=== PATIENT | male | born 1955 | race Caucasian/White ===

== ENCOUNTER 2020-12-31 12:26 | Day surgery (SDC) | payer MEDICARE ==
[2020-12-29 13:49] VITALS: BMI 23.6
[~2020-12-31 12:26] MED LIST: Lidocaine 1% MPF 2 ML VIAL ONE
[2020-12-31] MEDS ORDERED: PROPOFOL 20 ML ONE (13:43)
== END 2020-12-31 14:49 | disposition home or self-care (01) ==
LOC: CSHSDC 12:26
PROVIDERS: ATTEND Internal Medicine Gastroenterology
DX: K22.710 Barrett's esophagus with low grade dysplasia (principal); K44.9 Diaphragmatic hernia without obstruction or gangrene; K26.9 Duodenal ulcer, unspecified as acute or chronic, without hemorrhage or perforation; K25.9 Gastric ulcer, unspecified as acute or chronic, without hemorrhage or perforation
CPT/HCPCS: 88305; J2704

== ENCOUNTER 2021-06-03 12:30 | Outpatient (CLI) | payer MEDICARE ==
[2021-06-03 13:56] LABS: Hemoglobin 14.3 g/dL (13.5-17.5); Mean Corpuscular HGB CONC 35.8 g/dL (32.0-36.0); Mean Corpuscular Hemoglobin 35.6 pg (27.0-33.0); Mean Corpuscular Volume 99.5 fl (81.2-95.1); Mean Platelet Volume 9.7 fl (7.4-10.4); Platelet Count 134 10x3/uL (150-450); RBC Distribution Width 12.3 % (11.5-14.5); Red Blood Cell (RBC) Count 4.02 10x6/uL (4.32-5.72); White Blood Cell (WBC) Count 5.1 10x3/uL (3.5-10.5)
[2021-06-03 14:05] LABS: INR-International Normal Ratio 1.1; PTT 25.9 sec (22.0-33.0); Prothrombin Time 11.9 sec (9.5-12.1)
[2021-06-03 14:06] LABS: Anion Gap 16 mmol/L (10-20); BUN (Urea Nitrogen) 8 mg/dL (8.4-25.7); Calc. Creatinine Clearance 0 mL/min (70-130); Calcium 9.8 mg/dL (7.8-10.44); Carbon Dioxide 24 mmol/L (23-31); Chloride 103 mmol/L (98-107); Glucose 115 mg/dL (80-115); Potassium 4.2 mmol/L (3.5-5.1); Sodium 139 mmol/L (136-145)
[2021-06-04 08:53] LABS: SARS-CoV-2 PCR by NAA Not Detected (NotDetected)
== END 2021-06-03 12:31 | disposition home or self-care (01) ==
LOC: CSHLAB 12:30
PROVIDERS: ATTEND Specialist
DX: Z20.822 Contact with and (suspected) exposure to COVID-19 (principal); Z01.812 Encounter for preprocedural laboratory examination; Z01.810 Encounter for preprocedural cardiovascular examination
CPT/HCPCS: 80048; 85027; 85610; 85730; 93005; 93010; U0003; U0005

== ENCOUNTER 2021-06-08 06:41 | Inpatient (IN) | payer MEDICARE ==
[2021-06-08] MEDS ORDERED: Heparin 10,000 UNITS/ 10 ML VIAL ONE ×2 (07:29→09:58)
[2021-06-08] MEDS ORDERED: Nitroglycerin 50 MG/250 ML BOT 250 ML ONE (07:29)
[2021-06-08] MEDS ORDERED: Verapamil 5 MG/2 ML VIAL ONE (07:30)
[2021-06-08] MEDS ORDERED: Fentanyl 100 MCG/2 ML VIAL ONE ×2 (07:31→09:57)
[2021-06-08] MEDS ORDERED: Adenosine 6 MG/2 ML VIAL ONE (07:31)
[2021-06-08] MEDS ORDERED: Bivalirudin 250 MG VIAL ONE (07:31)
[2021-06-08] MEDS ORDERED: Midazolam HCl 2 mg/2 ml Vial ONE ×2 (07:32→09:20)
[2021-06-08] MEDS ORDERED: Sodium Chloride 0.9% 1,000 ML ONE ×2 (07:32→15:12)
[2021-06-08] MEDS ORDERED: Lidocaine 1% (PF) 30 ML VIAL ONE (07:55)
[2021-06-08] MEDS ORDERED: Ondansetron PF 4 MG/2 ML Vial ONE (08:52)
[2021-06-08] MEDS ORDERED: Morphine 4 MG/ML VIAL ONE ×2 (09:10→10:07)
[2021-06-08] MEDS ORDERED: Metoprolol Tartrate 5 MG/5 ML VIAL ONE ×2 (09:40→10:48)
[2021-06-08] MEDS ORDERED: Senokot S 8.6-50 MG TAB PO PRN (10:31)
[2021-06-08] MEDS ORDERED: Bisacodyl 5 MG TAB PO PRN (10:31)
[2021-06-08] MEDS ORDERED: Acetaminophen 325 MG TAB PO PRN (10:31)
[2021-06-08] MEDS ORDERED: Ondansetron ODT 4 MG TAB PO PRN (10:31)
[2021-06-08] MEDS ORDERED: Bisacodyl 10 MG SUPP PR PRN (10:31)
[2021-06-08] MEDS ORDERED: Zolpidem Tartrate 5 MG TAB PO PRN (10:31)
[2021-06-08] MEDS ORDERED: Guaifenesin DM 100-10/5 ML UDCUP PO PRN (10:31)
[2021-06-08] MEDS ORDERED: Loperamide HCl 2 MG CAP PO PRN (10:31)
[2021-06-08] MEDS ORDERED: Nitroglycerin 0.4 MG TAB (25 Tab Bottle) SL PRN (10:47)
[2021-06-08] MEDS ORDERED: Acetaminophen/Codeine 30-300mg Tablet PO PRN ×2 (10:47)
[2021-06-08] MEDS ORDERED: Sodium Chloride 0.9% 200 ML IV PRN (10:47)
[2021-06-08] MEDS ORDERED: Acetaminophen/Codeine 30-300mg Tablet ONE (11:19)
[2021-06-08] MEDS ORDERED: Clopidogrel Bisulfate 75 MG TAB ONE (11:19)
[2021-06-08] MEDS ORDERED: hydrALAZINE 20 MG/ML VIAL ONE (11:28)
[2021-06-08] MEDS ORDERED: hydrALAZINE 20 MG/ML VIAL SLOW IVP SCH (11:30)
[2021-06-08] MEDS ORDERED: Nitroglycerin 0.4 MG TAB (25 Tab Bottle) ONE (11:43)
[2021-06-08] MEDS ORDERED: Morphine 2 MG/ML VIAL ONE (13:08)
[2021-06-08] MEDS ORDERED: Lisinopril 5 MG TAB PO SCH (14:00)
[2021-06-08] MEDS ORDERED: Morphine 2 MG/ML VIAL SLOW IVP PRN (14:04)
[2021-06-08 14:31] LABS: CKMB 2.4 ng/mL (0-6.6)
[2021-06-08] MEDS: Carvedilol 6.25 MG TAB PO SCH (17:27)
[2021-06-08] MEDS: Famotidine 20 MG TAB PO SCH (23:44)
[2021-06-08] MEDS: Sodium Chloride 0.9% 1,000 ML IV SCH ×2 (23:45)
[2021-06-08] MEDS: Nicotine 14 MG PATCH TD SCH (23:46)
[2021-06-08] MEDS: Lisinopril 5 MG TAB PO SCH (23:46)
[2021-06-09] MEDS: Sodium Chloride 0.9% 1,000 ML IV SCH (04:40)
[2021-06-09 06:50] LABS: #Eosinphils 0.1 10x3/uL (0.0-0.5); #Monocytes 0.6 10x3/uL (0.0-1.1); #Neutrophils 3.3 10x3/uL (1.5-8.4); %Basophils 0.8 % (0.0-2.0); %Eosinophils 1.3 % (0.0-6.0); %Lymphocytes 23.1 % (18.0-47.0); %Monocytes 10.6 % (0.0-10.0); Mean Corpuscular HGB CONC 35.6 g/dL (32.0-36.0); Mean Corpuscular Hemoglobin 35.7 pg (27.0-33.0); Mean Corpuscular Volume 100.3 fl (81.2-95.1); Mean Platelet Volume 9.9 fl (7.4-10.4); RBC Distribution Width 12.7 % (11.5-14.5); Red Blood Cell (RBC) Count 3.08 10x6/uL (4.32-5.72); White Blood Cell (WBC) Count 5.2 10x3/uL (3.5-10.5)
[2021-06-09 06:51] LABS: Platelet Count 87 10x3/uL (150-450)
[2021-06-09 07:09] LABS: ALT (SGPT) 49 U/L (8-55); AST (SGOT) 80 U/L (5-34); Albumin 3.3 g/dL (3.4-4.8); Alkaline Phosphatase 46 U/L (40-110); Anion Gap 12 mmol/L (10-20); BUN (Urea Nitrogen) 5 mg/dL (8.4-25.7); Bilirubin, Total 0.5 mg/dL (0.2-1.2); Calc. Creatinine Clearance 120 mL/min (70-130); Calcium 8.5 mg/dL (7.8-10.44); Carbon Dioxide 22 mmol/L (23-31); Chloride 109 mmol/L (98-107); Globulin 2.7 g/dL (2.4-3.5); Glucose 125 mg/dL (80-115); Potassium 3.7 mmol/L (3.5-5.1); Sodium 139 mmol/L (136-145)
[2021-06-09 08:19] VITALS: TEMP 98.4
[2021-06-09] MEDS ORDERED: Escitalopram Oxalate 10 mg Tablet PO SCH (09:00)
[2021-06-09] MEDS ORDERED: Aspirin 81 mg Enteric Coated Tablet PO SCH (09:00)
[2021-06-09] MEDS ORDERED: Fish Oil 1,000 MG CAP PO SCH (09:00)
[2021-06-09] MEDS ORDERED: Clopidogrel Bisulfate 75 MG TAB PO SCH (09:00)
[2021-06-09] MEDS ORDERED: Multivit, Therapeutic 1 TAB PO SCH (09:00)
[2021-06-09] MEDS ORDERED: Enoxaparin Sodium 40 MG/0.4 ML SYRINGE SC SCH (09:00)
[2021-06-09] MEDS ORDERED: Rosuvastatin 10 MG TAB PO SCH (09:00)
[2021-06-09] MEDS: Carvedilol 6.25 MG TAB PO SCH (10:09)
[2021-06-09] MEDS: Famotidine 20 MG TAB PO SCH (10:10)
[2021-06-09] MEDS: Lisinopril 5 MG TAB PO SCH (10:11)
[2021-06-09] MEDS: Nicotine 14 MG PATCH TD SCH (10:12)
[2021-06-09 10:13] VITALS: BP 108/60
== END 2021-06-09 14:16 | disposition home or self-care (01) | DRG 246 ==
LOC: CSHSDC 06:41 → CSHTELE 22:04
PROVIDERS: ADMIT Specialist; ATTEND Specialist
PROC: 02C03ZZ Extirpation of Matter from Coronary Artery, One Artery, Percutaneous Approach (ICD-10-PCS; principal; 2021-06-07)
PROC: 027036Z Dilation of Coronary Artery, One Artery with Three Drug-eluting Intraluminal Devices, Percutaneous Approach (ICD-10-PCS; 2021-06-07)
DX: I25.110 Atherosclerotic heart disease of native coronary artery with unstable angina pectoris (principal); I25.42 Coronary artery dissection; I10 Essential (primary) hypertension; E78.5 Hyperlipidemia, unspecified; F17.210 Nicotine dependence, cigarettes, uncomplicated; Z71.6 Tobacco abuse counseling; I73.9 Peripheral vascular disease, unspecified; F41.9 Anxiety disorder, unspecified; F32.9 Major depressive disorder, single episode, unspecified; Z95.820 Peripheral vascular angioplasty status with implants and grafts; Z95.5 Presence of coronary angioplasty implant and graft; Z79.01 Long term (current) use of anticoagulants; Z79.82 Long term (current) use of aspirin; Z79.899 Other long term (current) drug therapy
CPT/HCPCS: 33210; 36415; 80053; 82553; 84484; 85025; 85347; 92933; 93005; 93010; 93306; 93454; 99152; 99153; C1760; C1769; C1874; C1888; C9602; J0153; J0360; J0583; J1644; J1650; J2001; J2250; J2270; J2405; J3010; J7050

== ENCOUNTER 2023-06-26 09:49 | Outpatient (CLI) | payer OTHER | END 2023-06-26 09:50 | disposition home or self-care (01) | LOC: CSHULT 09:49 | PROVIDERS: ATTEND Student in an Organized Health Care Education/Training Program | DX: R74.8 Abnormal levels of other serum enzymes (principal); D69.6 Thrombocytopenia, unspecified; K76.0 Fatty (change of) liver, not elsewhere classified | CPT/HCPCS: 76705 ==

== ENCOUNTER 2024-11-01 13:17 | Outpatient (CLI) | payer OTHER | END 2024-11-01 13:18 | disposition home or self-care (01) | LOC: CSHRAD 13:17 | PROVIDERS: ATTEND Neurological Surgery | DX: M48.061 Spinal stenosis, lumbar region without neurogenic claudication (principal); M41.86 Other forms of scoliosis, lumbar region; M47.816 Spondylosis without myelopathy or radiculopathy, lumbar region | CPT/HCPCS: 72120 ==

== ENCOUNTER 2025-06-02 10:04 | Outpatient (CLI) | payer OTHER ==
[~2025-06-02 10:04] MED LIST changes: +Iopamidol 370 76% 100 ML VIAL ONE; -Lidocaine 1% MPF 2 ML VIAL ONE
[2025-06-02 11:03] LABS: Estimated GFR - POC 99.0
== END 2025-06-02 10:05 | disposition home or self-care (01) ==
LOC: CSHCT 10:04
PROVIDERS: ATTEND Specialist
DX: I71.40 Abdominal aortic aneurysm, without rupture, unspecified (principal); I70.0 Atherosclerosis of aorta; I70.1 Atherosclerosis of renal artery; I70.8 Atherosclerosis of other arteries
CPT/HCPCS: 74174; 82565